=== PATIENT | female | born 1940 | race Caucasian/White ===

== ENCOUNTER 2019-01-02 08:34 | Inpatient (IN) ==
--- NOTE | 2018-12-03 09:28 | PAT Medication Instructions ---
Medication Instructions Date of Service December 03, 2018 Home Medications Advair 1 puff INHALATION UD PRN acetaminophen [Tylenol Extra Strength] 1,000 mg PO BID ascorbic acid (vitamin C) [Vitamin C] 1 g PO DAILY aspirin [Aspir-81] 81 mg PO DAILY atenolol 50 mg PO QPM cholecalciferol (vitamin D3) [Vitamin D3] 5,000 unit PO DAILY linaclotide [Linzess] 145 mcg PO UD PRN losartan 50 mg PO QAM [Centrum Silver Women] 1 tab PO DAILY omega 1-abc-nrs-fish oil [[employer]-3] 1 cap PO DAILY pantoprazole 40 mg PO QAM paroxetine HCl 10 mg PO QPM rosuvastatin 40 mg PO QPM STOP taking 2 weeks before surgery (or as soon as possible if surgery is within 2 weeks) omega 2-xzs-fca-fish oil [[employer]-3] 1 cap PO DAILY DO NOT take the morning of surgery ascorbic acid (vitamin C) [Vitamin C] 1 g PO DAILY cholecalciferol (vitamin D3) [Vitamin D3] 5,000 unit PO DAILY linaclotide [Linzess] 145 mcg PO UD PRN losartan 50 mg PO QAM [Centrum Silver Women] 1 tab PO DAILY Take morning of surgery With a small sip of water, OTHERWISE NOTHING TO EAT OR DRINK AFTER MIDNIGHT: Advair 1 puff INHALATION UD PRN (if needed) acetaminophen [Tylenol Extra Strength] 1,000 mg PO BID (okay to take up to 4 hours prior to surgery if needed) aspirin [Aspir-81] 81 mg PO DAILY pantoprazole 40 mg PO QAM Take evening before surgery Advair 1 puff INHALATION UD PRN (if needed) acetaminophen [Tylenol Extra Strength] 1,000 mg PO BID atenolol 50 mg PO QPM linaclotide [Linzess] 145 mcg PO UD PRN (if needed) paroxetine HCl 10 mg PO QPM rosuvastatin 40 mg PO QPM Other Notes If you have any questions please call us at [phone] or [phone] or [phone] or [phone]
--- NOTE | 2018-12-04 13:18 | Anesthesiology Consultation ---
Date of Service December 04, 2018 Assessment & Plan (1) Encounter for pre-operative examination: - Awaiting review preop testing (labs, EKG, CXR). - Awaiting cardiology office visit scheduled 12/05 ([facility] cardiology). - S/P right CEA (2015): most recent carotid duplex 04/2016. Order pending in [facility] for patient to have updated (patient made aware to obtain prior to surgery). Chart Review Chart Review: Patient seen in Pre Admission Testing Teaching & Discussion Pre-Anesthesia Teaching/Discussion Notes: Instructed NPO after midnight before surgery,except medications with 15 cc of water. Medication instructions provided according to the PAT guidelines. History Surgery Operation Date: 01/02/19 07:00 Proposed Procedures p Right Total Knee Arthroplasty - Mickey Troy MD Height/Weight Height: 5 ft 8 in Weight: 89.8 kg Allergies Allergy/AdvReac Type Severity Reaction Status Date / Time adhesive Allergy Unknown bandaids- Verified 12/04/18 13:15 rash latex Allergy Unknown Rash Verified 11/28/18 09:48 Penicillins Allergy Unknown Rash Verified 12/04/18 13:15 lisinopril AdvReac Unknown Cough Verified 11/28/18 09:48 Medications Home Medications Medication Instructions Recorded Confirmed Last Taken Advair 1 puff INHALATION UD PRN 11/28/18 11/28/18 Unknown acetaminophen [Tylenol Extra 1,000 mg PO BID 11/28/18 11/28/18 Unknown Strength] ascorbic acid (vitamin C) [Vitamin 1 g PO DAILY 11/28/18 11/28/18 Unknown C] aspirin [Aspir-81] 81 mg PO DAILY 11/28/18 11/28/18 Unknown atenolol 50 mg PO QPM 11/28/18 11/28/18 Unknown cholecalciferol (vitamin D3) 5,000 unit PO DAILY 11/28/18 11/28/18 Unknown [Vitamin D3] linaclotide [Linzess] 145 mcg PO UD PRN 11/28/18 11/28/18 Unknown losartan 50 mg PO QAM 11/28/18 11/28/18 Unknown qjgffsna-msv-qbid-FA-lutein 1 tab PO DAILY 11/28/18 11/28/18 Unknown [Centrum Silver Women] omega 8-sso-fpl-fish oil [Export-3] 1 cap PO DAILY 11/28/18 11/28/18 Unknown pantoprazole 40 mg PO QAM 11/28/18 11/28/18 Unknown paroxetine HCl 10 mg PO QPM 11/28/18 11/28/18 Unknown rosuvastatin 40 mg PO QPM 11/28/18 11/28/18 Unknown Past Medical History Medical History Acid reflux controlled Asthma stable Carotid artery stenosis s/p right CEA (2015) Hyperlipidemia Hypertension IBS (irritable bowel syndrome) Obesity Osteoarthritis Exercise / Class Metabolic Activity III < 4 Walking/Shop/Light housework (uses cane PRN) Past Family History Family History Mother Family history of diabetes mellitus (DM) Past Surgical History Surgical History History of CEA (carotid endarterectomy) right History of cholecystectomy History of colonoscopy History of hysterectomy History of lumbar surgery + rods History of total left knee replacement Past Anesthesia History No Hx of Anesthesia Complications and No Family Hx of Anesthesia Complications History of PONV No Hx of PONV and No Hx of Motion Sickness Social History Smoking Status: Former smoker Do You Dip or Chew Tobacco: No Smoking End Date: QUIT 47 YRS AGO Hx Alcohol Use: No Hx Substance Use: No substance use type: does not use Review of Systems Seasonal allergies with sinus congestion/cough improving. Patient denies chest pain, shortness of breath, reflux, wheezing, palpitations. Physical Exam Vital Signs VITALS BP 107/59 P 76 TEMP 98.4 SP02 92%RA RESP 16 PHYSICAL Mildly decreased cervical extension Full TMJ range of motion. TMD 3.5 finger breaths Mallampati Score 2 Dentition: full dentures upper/lower; edentulous Lungs: clear throughout to auscultation Cardiac: regular rate and rhythm, I/ systolic murmur Spine: normal Carotid arteries: faint bruits Extremities: no edema Testing Laboratory Results 11/20/18 WBC 6.0 H/H 13.2/39.5 PLATELETS 236 SODIUM 140 POTASSIUM 5.0 CHLORIDE 104 CO2 29 BUN 28 CREATININE 1.0 GLUCOSE 98 Stress Test Date: 10/14/15 Type: DSE DSE/stress EKG without evidence of inducible ischemia. No chest pain. 95% MPHR. LVEF 56%. Moderately increased cLV wall thickness. Grade I DD. Mild FL. Other Testing Carotid artery duplex: 04/07/16: LINDSEY possible 50-69% stenosis distal to the prior right CEA region. Sup-optimal imaging in this area. No evidence of significant restenosis in the CEA area. LICA 50-69% stenosis (measurement is taken after a bend in the artery, however, and may be an overestimate. B/L vertebral artery antegrade flow.
--- NOTE | 2018-12-04 14:19 | XRay Report ---
XR chest Pre-admission PA/Lat CLINICAL HISTORY: Preoperative chest COMPARISON STUDY: November 2010 FINDINGS: The heart is normal in size. There is suspected underlying emphysema. There is no failure. There is no lobar consolidation. There are old bilateral rib fractures. On the lateral view there is a triangular opacity within the retroxiphoid region. Although nonspecific, this likely represents an area of scarring/atelectasis.[ IMPRESSION: 1. 11 mm triangular opacity within the retroxiphoid region as visualized on the lateral view. Althoug h nonspecific, this likely represents an area of atelectasis/scarring. 2. No evidence of lobar consolidation. No evidence of failure. Electronically signed by: Dick Cadet M.D. 12/04/2018 2:17 PM
[2018-12-04 16:12] LABS: Appearance Urine Clear (Clear); Bilirubin Urine Negative (Negative); Blood Urine Negative (Negative); Color Urine Yellow; Glucose Urine UA Negative (Negative); Ketones Urine Negative (Negative); Leukocyte Esterase Urine Negative (Negative); Nitrite Urine Negative (Negative); Protein Urine Negative (Negative); Specific Gravity Urine 1.025 (1.000-1.030); Urobilinogen Urine Negative (Negative)
[2018-12-04 16:20] LABS: Partial Thromboplastin Ratio 0.9; Partial Thromboplastin Time 25.6 Seconds (21.0-31.0); Prothrombin Time 10.3 Seconds (9.0-12.0)
[2018-12-04 16:30] LABS: Cast Urine Automated 0 /lpf (0-5); RBC Urine Automated 0-4 /hpf (0-4)
[2018-12-04 16:31] LABS: Bacteria Urine Automated 1+ (Negative)
[2018-12-05 05:53] LABS: Estimated Average Glucose 131 mg/dl; Hemoglobin A1C 6.2 % (4.5-5.6)
--- NOTE | 2019-01-01 19:23 | History and Physical Report ---
DATE OF ADMISSION: 01/02/2019 CHIEF COMPLAINT: Chronic right knee pain. HISTORY OF PRESENT ILLNESS: This is a 78-year-old female patient of Dr. Troy'gonzalez complaining of chronic right knee pain, longstanding, now progressively getting worse. The patient has failed conservative treatment including intra-articular injections, anti-inflammatories, home exercise program, the use of a cane and the use of a sleeve. The patient has increased pain with weightbearing activities and her pain does interfere with her activities of daily living. The patient has been diagnosed with end-stage osteoarthritis per clinical and radiographic exams. The patient wished to proceed with a right total knee arthroplasty. PAST MEDICAL HISTORY: Hypertension, hypercholesterolemia, carotid artery stenosis of less than 50% - no symptoms, rheumatoid arthritis, spine problems, benign neoplasia of the colon. SOCIAL HISTORY: Former smoker, nondrinker. PAST SURGICAL HISTORY: Hysterectomy, cholecystectomy, low back surgery, left total knee arthroplasty and carotid artery on the right. FAMILY HISTORY: Noncontributory. REVIEW OF SYSTEMS: Chronic right knee pain, otherwise denies any shortness of breath, chest pain, nausea, vomiting or any other joint complaints. MEDICATIONS: 1. Crestor 40 mg daily. 2. Zyrtec 10 mg daily. 3. ProAir HFA 90 mcg actuation inhaler 2 puffs every 4-6 hours as needed. 4. Paxil 10 mg daily. 5. Pantoprazole 40 mg daily. 6. MiraLax 17 grams with a choice of mixture as needed. 7. Losartan 50 mg daily. 8. Linzess 145 mcg daily. 9. Flonase 50 mcg actuation 1-2 sprays daily as needed. 10. Fish oil 1000 mg daily. 11. Atenolol 50 mg daily. 12. Aspirin 81 mg daily. 13. Advair HFA 230/21 mcg actuation inhaler 2 puffs twice daily. ALLERGIES: LATEX, LISINOPRIL WHICH CAUSES A COUGH, PENICILLIN CAUSES A RASH. PHYSICAL EXAMINATION: GENERAL: A well-developed, well-nourished 78-year-old female in no acute distress. She is alert and oriented x3 and pleasant. HEENT: Normocephalic, atraumatic. Extraocular motions are intact. Pupils are equal and reactive to light. HEART: Regular rate and rhythm, no murmurs. LUNGS: Clear. ABDOMEN: Soft, nontender, bowel sounds present. EXTREMITIES: Right knee limited range of motion of negative 5 to 120 degrees. She has a varus deformity with medial joint line tenderness. She has crepitation with passive range of motion. She has 5/5 strength with pain. Neurologically and neurovascularly, she is intact in her right lower extremity. DIAGNOSES: Right knee end-stage osteoarthritis, hypertension, hypercholesterolemia, carotid stenosis, asthma, rheumatoid arthritis, spine problems, benign neoplasm in the colon. PLAN: The patient was advised of her diagnosis. Indications, risks, benefits, postop course have all been reviewed. The patient wished to proceed with a right total knee arthroplasty. Necessary consent forms, preoperative testing and clearances will be obtained.
[~2019-01-02 08:34] MED LIST: ACETAMINOPHEN 500 MG TAB PO SCH; BUPIVACAINE 0.5 % 5 MG/1 ML PF 10ML VIAL ONE; BUPIVACAINE/EPINEPHRINE 0.25% 1:200,000 30 ML VIAL ONE; CeleBREX 200 MG CAP PO SCH; DEXAMETHASONE SOD INJ 4 MG/ML VIAL ONE; FAMOTIDINE 20 MG TAB PO SCH; GABAPENTIN 300 MG CAP PO SCH; LIDOCAINE HCL 2% 2 ML VIAL/AMP(20MG/ML) INFIL ONE; LR 500ML BOLUS, THEN 15ML/HR IV SCH; METOCLOPRAMIDE HCL 10 MG TABLET PO SCH; MIDAZOLAM HCL 1 MG/ML 2ML VIAL ONE; ONDANSETRON INJ 2 MG/ML 2 ML VIAL ONE; PROPOFOL IV EMULSION 10 MG/ML 20 ML VIAL IV ONE; ROPIVACAINE 0.5% HCL/PF 150 MG, BUPIVACAINE 0.5% MPF 30 ML, EPINEPHrine 30MG/30ML (OR U... INSTIL SCH; TRANEXAMIC ACID 1,000 MG **IV Intra-op IV SCH; TRANEXAMIC ACID 1,000 MG **IV Pre-op IV SCH; VANCOMYCIN HCL 1,250 MG in SODIUM CHLORIDE 0.9% 250 ML IV SCH; dexAMETHasone 4 MG TAB PO SCH; fentaNYL citrate 100 MCG/2 ML VIAL ONE
[2019-01-02] MEDS ORDERED: ORTHO JOINT ANESTHETIC ONE (09:09)
[2019-01-02] MEDS ORDERED: BACITRACIN INJ 50,000 UNIT VIAL ONE (09:09)
--- NOTE | 2019-01-02 09:34 | History & Physical Bridge Note ---
Date of Service January 02, 2019 History & Physical Bridge Note I have examined the patient, reviewed the History & Physical and in the interval since the performance of the History & Physical I have noted the following changes of clinical significance: no changes noted
[2019-01-02] MEDS ORDERED: fentaNYL citrate 100 MCG/2 ML VIAL IV PRN (10:33)
[2019-01-02] MEDS ORDERED: ePHEDrine sulfate 50 MG/ML AMP IV PRN (10:33)
[2019-01-02] MEDS ORDERED: ONDANSETRON INJ 2 MG/ML 2 ML VIAL IV PRN ×2 (10:33→13:24)
[2019-01-02] MEDS ORDERED: ATROPINE SULFATE 0.1 MG/ML 10ML SYR IV PRN (10:33)
[2019-01-02] MEDS ORDERED: PROPOFOL IV EMULSION 10 MG/ML 20 ML VIAL IV ONE (11:32)
--- NOTE | 2019-01-02 11:35 | Operative Report ---
Post Operative Report Pre & Post Diagnosis Operation Date: 01/02/19 11:20 Pre-Op Diagnosis: RIGHT KNEE OSTEOARTHRITIS Post-Op Diagnosis: RIGHT KNEE OSTEOARTHRITIS I identified the patient and participated in the time-out.: Yes Procedure Operation Date: 01/02/19 11:20 Actual Procedures p Right Total Knee Arthroplasty(Right) - Mickey Troy MD Surgeon Mickey Troy MD Commutator Inspector Gentry GREENE Estimated Blood Loss 2 Findings Consistent with Post-Op Diagnosis Specimens Bone cuts Drains 2 Hemovac Anesthesia Type General Regional Complications none Disposition Accompanied Patient To Recovery: No Disposition: Recovery Room Indications 70-year-old female with aggressive osteoarthritis in her right knee failed conservative management. History successful Carlson & Nephew knee replacement left knee. Radiographs demonstrate [id number] medial compartment varus knee patellofemoral medial compartment OA Description of Procedure The patient was taken to the operating room and anesthetized under spinal MAC regional. Patient was placed supine on the the operating table. A pneumatic tourniquet was placed about the right upper thigh. The knee exam demonstrated 0 through 125 degrees range of motion no instability mild effusion varus knee. The involved leg was elevated exsanguinated with Esmarch bandage and the pneumatic tourniquet was raised to 325 millimeters mercury. A longitudinal incision was made across the anterior knee. Skin flaps were elevated. An incision was made into the medial retinaculum and extended up into the mid third of the quadriceps tendon and extended down to the tibial tubercle. Intra- articular findings demonstrated medial compartment patellofemoral osteoarthritis grade 4 medial compartment and grade 3 patellofemoral joint with complex radial medial meniscus tear. The knee was exposed by excising cruciate ligaments and menisci. The infrapatellar fat pad was resected. The fat pad over the anterior femur at the upper aspect of the articular surface was resected for placement of the component in that area. A subperiosteal peel lateral release was performed around the patella The Carlson & Nephew journey 2.0 posterior stabilized total knee arthroplasty system was utilized for the procedure. The drill hole was made into the femoral canal and the guide rené was placed in the distal femoral cutting guide was adjusted to resect a standard distal femoral cut at 5 degrees valgus. The distal femoral cut was made. The size 5, 5 in 1 cutting block was placed. The anterior posterior and chamfer cuts were made. The knee was extended and a free hand cut technique was performed to the patella. The patella with was measured and the width was reproduced using a 35 symmetrical patella component. 3 drill holes are made for the patella component pegs. The tibia was then subluxed. The custom tibial cutting block was pinned in position and the proximal tibial cut was made with the oscillating saw. The size 5 tibial trial was externally rotated in line with the tibial tubercle and pinned in position. The punch for the stem was used. The femoral trial was inserted and centered the notch cutting devices were used and the collet was placed. Tibial trials were used for the insert. The size 12 trial gave balanced ligaments through full range of motion. Patella tracking was assessed with range of motion. The patella tracked centrally. The trials were removed. The Orthomix anesthetic cocktail was injected per protocol. The cut bone surfaces and soft tissue were copiously irrigated with antibiotic solution with bacitracin. The final components were cemented with Simplex cement. The final components were Carlson & Nephew journey 2.05 Oxinium right posterior stabilized femoral component, 5 tibial baseplate, 12 posterior stabilized polyethylene insert and 35 patella symmetrical. While the cement cured the Betadine soak was used per protocol. When the cement cured the knee was copiously irrigated with pulsatile lavage antibiotic solution with bacitracin. 2 drains were brought out laterally connected to Hemovac. The quadriceps tendon and medial retinaculum were closed with interrupted ibptyc-di-[id number] #1 Vicryl sutures. The knee was taken through full range of motion and repair was secure. The subcutaneous tissues were closed with 2-0 Vicryl sutures. The skin was closed with eladio. A sterile dressing was applied. The tourniquet was let down and the patient had good capillary refill to the extremity. The patient tolerated the procedure well. My physician assistant paralegal Gentry GREENE assisted in the procedure including prepping draping leg positioning soft tissue retraction instrument management and assisted in the closure ,dressings application and will participate in postoperative care the patient. I attest to the content of the Intraoperative Record and any orders documented therein. Any exceptions are noted below.
--- NOTE | 2019-01-02 12:48 | XRay Report ---
XR knee RT 1 or 2V routine CLINICAL HISTORY: 78 years-old Female presenting with Surgical Post Op. TECHNIQUE: Frontal and lateral views of the right knee were obtained. COMPARISON: None. FINDINGS: Postsurgical changes of total right knee arthroplasty with patellar resurfacing. Expected soft tissue and intra-articular emphysema. Overlying skin eladio. Surgical drain in place. No malalignment. No periprosthetic fracture. No periprosthetic lucency. Underlying osteopenia may be present. IMPRESSION: Expected postsurgical appearance status post total right knee arthroplasty with patellar resurfacing. Electronically signed by: Johny Núñez M.D. 01/02/2019 12:47 PM
--- NOTE | 2019-01-02 12:49 | Anesthesiology Progress Note ---
Date of Service January 02, 2019 Anesthesia Post Procedure Vital Signs Vital Signs: Temp Pulse Resp BP Pulse Ox 01/02/19 12:45 76 14 127/53 L 93 01/02/19 12:35 36.6 C 71 17 122/64 93 01/02/19 12:25 71 19 136/52 L 94 01/02/19 12:15 71 16 141/56 H 100 01/02/19 12:05 74 17 138/58 L 100 01/02/19 11:55 36.5 C 80 12 138/56 L 98 01/02/19 09:05 36.7 C 69 16 160/65 H 94 Transfer of Care Handoff Completed per policy Notes Mental Status: alert / awake / arousable Patient Amnestic to Procedure: Yes Nausea / Vomiting: adequately controlled Pain: adequately controlled Airway Patency, RR, SpO2: stable & adequate BP & HR: stable & adequate Hydration State: stable & adequate Anesthetic Complications: no major complications apparent
[2019-01-02] MEDS ORDERED: HYDROmorphone INJ 0.5 MG/0.5 ML SYR IV PRN (13:24)
[2019-01-02] MEDS ORDERED: LINACLOTIDE 72 MCG CAPSULE PO PRN (13:24)
[2019-01-02] MEDS ORDERED: ADVAIR INH PRN (13:24)
[2019-01-02] MEDS ORDERED: MAGNESIUM HYDROXIDE SUSP 30 ML UDC PO PRN (13:24)
[2019-01-02] MEDS ORDERED: NALOXONE HCL 0.4 MG/1 ML VIAL/CARP IV PRN (13:24)
[2019-01-02] MEDS ORDERED: VANCOMYCIN CONSULT ACTIVE PRN (13:24)
[2019-01-02] MEDS ORDERED: BISACODYL 10 MG SUPP PR PRN (13:24)
[2019-01-02] MEDS: ACETAMINOPHEN 500 MG TAB PO SCH ×2 (13:57→21:38)
[2019-01-02] MEDS: SODIUM CHLORIDE 0.9% 1000ML 1,000 ML IV SCH (13:58)
--- NOTE | 2019-01-02 15:32 | Hospitalist Consultation ---
Date of Consultation January 02, 2019 Assessment & Plan (1) Hypertension: Blood pressure appears to be stable. Continue home medicine aspirin 81 mg p.o. daily when okay with Ortho, atenolol 50 mg p.o. nightly every afternoon, losartan 50 mg p.o. every morning. Patient blood pressure is less than 120/80 hold blood pressure medicine and recheck blood pressure again. Keep systolic blood pressure below 150 and diastolic below 85. Continue monitoring Present on Admission?: Yes (2) Hyperlipidemia: Lipid panel pending. Continue home dose of rosuvastatin 40 mg p.o. every afternoon and omega-3 fish oil 1 capsule p.o. daily. Present on Admission?: Yes (3) Obesity: Patient advised to try to lose weight especially now when she has replaced knee and will be able to walk more and exercise. Physical and Occupational Therapy per primary team. (4) Carotid artery stenosis: Patient said she had CEA by at [facility] for the right carotid artery stenosis. Patient said that last week she had another sonogram which was surveillance sonogram and showed that she had only 50% stenosis on the left. Follow-up with Dr. Sheriff. Present on Admission?: Yes (5) GERD (gastroesophageal reflux disease): Continue home dose of pantoprazole 40 mg p.o. every morning. Present on Admission?: Yes (6) Irritable bowel syndrome: Continue linaclotide 145 MCG's p.o. as needed. Present on Admission?: Yes (7) Encounter for pre-operative examination: Right knee arthroplasty management per primary team. DVT prophylaxis per primary team. Present on Admission?: Yes History of Present Illness Reason for Consultation: Medical management Attending Physician: Mickey Troy MD History of Present Illness Patient is a 78 years old female with past medical history of hypertension, hyperlipidemia, COPD, hypercholesterolemia and GERD, depression status post right knee arthroplasty for osteoarthritis by Dr. Mickey Troy And he consulted as for the medical management of patient chronic diseases. Patient tolerated surgery very well she is sitting up in the bed. Patient is at 2 L of oxygen even though usually she is not on oxygen at home. She denies fever, chills, chest pain, shortness of breath, abdominal pain, frequency, urgency. Her pain is well controlled. P.o. intake is good. Patient does not have complain of constipation and reports regular bowel movements. Allergies Allergy/AdvReac Type Severity Reaction Status Date / Time adhesive Allergy Unknown bandaids- Verified 01/02/19 09:00 rash latex Allergy Unknown Rash Verified 01/02/19 09:00 Penicillins Allergy Unknown Rash Verified 01/02/19 09:00 lisinopril AdvReac Unknown Cough Verified 01/02/19 09:00 Home Medications Home Medications Medication Instructions Recorded Confirmed Type Advair 1 puff INHALATION UD PRN 11/28/18 01/02/19 History acetaminophen [Tylenol Extra 1,000 mg PO BID 11/28/18 01/02/19 History Strength] ascorbic acid (vitamin C) [Vitamin 1 g PO DAILY 11/28/18 01/02/19 History C] aspirin [Aspir-81] 81 mg PO DAILY 11/28/18 01/02/19 History atenolol 50 mg PO QPM 11/28/18 01/02/19 History cholecalciferol (vitamin D3) 5,000 unit PO DAILY 11/28/18 01/02/19 History [Vitamin D3] linaclotide [Linzess] 145 mcg PO UD PRN 11/28/18 01/02/19 History losartan 50 mg PO QAM 11/28/18 01/02/19 History suwnsgzp-hjk-olmo-FA-lutein 1 tab PO DAILY 11/28/18 01/02/19 History [Centrum Silver Women] omega 0-tao-vbo-fish oil [Grant-3] 1 cap PO DAILY 11/28/18 01/02/19 History pantoprazole 40 mg PO QAM 11/28/18 01/02/19 History paroxetine HCl 10 mg PO QPM 11/28/18 01/02/19 History rosuvastatin 40 mg PO QPM 11/28/18 01/02/19 History Patient History Medical History Acid reflux controlled Asthma stable Carotid artery stenosis s/p right CEA (2015) Hyperlipidemia Hypertension IBS (irritable bowel syndrome) Obesity Osteoarthritis Surgical History History of CEA (carotid endarterectomy) right History of cholecystectomy History of colonoscopy History of hysterectomy History of lumbar surgery + rods History of total left knee replacement Family History Mother Family history of diabetes mellitus (DM) Social History Preferred Language: Guinean Communication Ability: Effective [employer] Machine Feeder Required: No Beliefs That Will Affect Care: None Current Living Situation: Spouse Other Information That Helps Us Care for You: No Feels Safe at Home: Yes Smoking Status: Former smoker Do You Dip or Chew Tobacco: No ; Smoking End Date: QUIT 47 YRS AGO ; Hx Alcohol Use: No Hx Substance Use: No Review of Systems Review of Systems: All systems reviewed & are unremarkable except as noted in HPI & below Physical Exam Constitutional: WD/WN, vitals as above well developed Eyes: PERRL, conjunctivae normal, anicteric sclerae ENMT: external ear and nose normal, oropharynx normal Mouth: + dentures Mallampati Class: II Neck: normal visual inspection Respiratory: normal respiratory effort Auscultation: lungs clear to auscultation bilaterally Cardiovascular: Rate/Rhythm: regular rate and regular rhythm Heart Sounds: normal S1, normal S2 and + murmur Gastrointestinal (Abdomen): normal bowel sounds, soft, nontender, no hepatosplenomegaly Musculoskeletal: no cyanosis or clubbing, extremities motor strength 5/5 Skin: no rashes, warm and dry Neurologic: patellar DTR's 2+ bilat, sensation intact Psychiatric: A+Ox3, euthymic affect Lymphatic: no cervical or axillary lymphadenopathy Results & Data Vital Signs (Past 12 Hours) Vital Signs Temp Pulse Pulse Pulse Resp BP Pulse Ox 01/02/19 14:55 36.7 C 79 17 112/60 94 01/02/19 14:02 36.7 C 84 16 126/56 L 91 01/02/19 13:26 36.8 C 74 16 112/51 L 92 01/02/19 12:55 36.8 C 75 16 127/62 94 01/02/19 12:45 76 14 127/53 L 93 01/02/19 12:35 36.6 C 71 17 122/64 93 01/02/19 12:25 71 19 136/52 L 94 01/02/19 12:15 71 16 141/56 H 100 01/02/19 12:05 74 17 138/58 L 100 01/02/19 11:55 36.5 C 80 12 138/56 L 98 01/02/19 09:05 36.7 C 69 16 160/65 H 94 PG Care Time/CCT Total # of Minutes Spent Total Time Spent with Patient: Total time spent is greater than 50% in coordination of care (as documented) at patient's floor/unit and/or counseling patient:
[2019-01-02] MEDS: ADVAIR~ORDER AWAITING ACTION SCH (16:42)
[2019-01-02] MEDS: DOCUSATE SODIUM 100 MG CAP PO SCH (20:36)
[2019-01-02] MEDS: ROSUVASTATIN CALCIUM 20 MG TAB PO SCH (20:37)
[2019-01-02] MEDS: PARoxetine HCl 10 MG TAB PO SCH (20:38)
[2019-01-02] MEDS: ASPIRIN 81 MG ECTAB PO SCH (20:38)
[2019-01-02] MEDS: SENNA 8.6 MG TAB PO SCH (20:38)
[2019-01-02] MEDS: ATENOLOL 50 MG TABLET PO SCH (21:39)
[2019-01-02] MEDS ORDERED: VANCOMYCIN HCL 1,250 MG in SODIUM CHLORIDE 0.9% 250 ML IV SCH (22:00)
[2019-01-03] MEDS: SODIUM CHLORIDE 0.9% 1000ML 1,000 ML IV SCH (00:08)
[2019-01-03] MEDS: ADVAIR~ORDER AWAITING ACTION SCH ×3 (00:09→15:16)
[2019-01-03] MEDS: ACETAMINOPHEN 500 MG TAB PO SCH ×3 (05:48→21:15)
[2019-01-03 06:13] LABS: Hemoglobin 10.1 g/dL (12.0-16.0); Mean Corpuscular Hemoglobin 30.1 pg (25-34); Mean Corpuscular Hgb Conc 32.6 g/dL (32-36); Mean Corpuscular Volume 92.5 fL (80-100); Mean Platelet Volume 10.2 fL (7.4-10.4); Platelet Count 196 K/uL (130-400); RDW Coefficient of Variation 13.5 % (11.5-14.5); RDW Standard Deviation 45.6 fL (36.4-46.3); Red Blood Count 3.35 M/uL (4.2-5.4); White Blood Count 10.03 K/uL (4.8-10.8)
[2019-01-03 06:48] LABS: BUN Creatinine Ratio 23.9 (10-20); Creatinine Clr Calc Pharmacy 47.4 ml/min; Est GFR (African American) 53.3; Potassium 4.2 mmol/L (3.5-5.1)
[2019-01-03] MEDS: ASCORBIC ACID 500 MG TAB PO SCH (09:01)
[2019-01-03] MEDS: MULTIVITAMIN TAB PO SCH (09:02)
[2019-01-03] MEDS: CHOLECALCIFEROL 1,000 UNITS TAB PO SCH (09:02)
[2019-01-03] MEDS: ASPIRIN 81 MG ECTAB PO SCH ×2 (09:02→20:25)
[2019-01-03] MEDS: LOSARTAN POTASSIUM 50 MG TAB PO SCH (09:02)
[2019-01-03] MEDS: DOCUSATE SODIUM 100 MG CAP PO SCH ×2 (09:02→20:24)
[2019-01-03] MEDS: PANTOprazole 40 MG TAB PO SCH (09:02)
[2019-01-03] MEDS: CEROVITE ADV FORMULA TAB PO SCH (09:02)
--- NOTE | 2019-01-03 09:16 | Orthopedic Progress Note ---
Date of Service January 03, 2019 Assessment & Plan (1) Status post right knee replacement: 78 yo female stable POD #1 s/p right TKA 1. Med management 2. DVT prophylaxis- ASA, SCDs 3. PT/OT 4. D/C planning- home w/ HH Subjective Pt resting in chair, eating breakfast, denies complaints Physical Exam Physical Exam: Toes mobile, N/V/I, dressing and drain in place Results & Data Vital Signs (Past 12 Hours) Vital Signs Temp Pulse Resp BP Pulse Ox 01/03/19 07:05 36.8 C 72 18 138/48 L 95 01/03/19 05:52 92 01/03/19 03:24 36.8 C 73 16 113/47 L 93 01/02/19 23:01 36.8 C 76 16 130/55 L 95 Laboratory Results 01/03/19 01/03/19 Range/Units 05:07 05:07 WBC 10.03 (4.8-10.8) K/uL RBC 3.35 L (4.2-5.4) M/uL Hgb 10.1 L (12.0-16.0) g/dL Hct 31.0 L (37-47) % MCV 92.5 (80-100) fL MCH 30.1 (25-34) pg MCHC 32.6 (32-36) g/dL RDW Std Deviation 45.6 (36.4-46.3) fL RDW Coeff of Jimmy 13.5 (11.5-14.5) % Plt Count 196 (130-400) K/uL MPV 10.2 (7.4-10.4) fL Sodium 142 (136-145) mmol/L Potassium 4.2 (3.5-5.1) mmol/L Chloride 111 H (98-107) mmol/L Carbon Dioxide 23 (21-32) mmol/L Anion Gap 8.0 (3-11) BUN 27 H (7-18) mg/dl Creatinine 1.14 (0.6-1.2) mg/dl Est Cr Clr Drug Dosing 47.4 ml/min Est GFR ( Amer) 53.3 Est GFR (Non-Af Amer) 46.0 BUN/Creatinine Ratio 23.9 H (10-20) Glucose 139 H (70-99) mg/dl Calcium 9.0 (8.5-10.1) mg/dl
--- NOTE | 2019-01-03 10:13 | Hospitalist Progress Note ---
Date of Service January 03, 2019 Assessment & Plan (1) Status post right knee replacement: Ms. Nair is a 78 year old female with PMHx of hypertension, hyperlipidemia, COPD, GERD and depression s/p right knee arthroplasty on Jan 02, [address] Mickey Troy. Pt doing well, hypoxia resolved. Hospitalist team will sign off. Please contact once more if any additional questions or concerns. Hypoxia post/op requiring oxygen supplementation -currently resolved -pt on room air saturating >92 -continue incentive spirometry Hx of right knee arthroplasty -Surgery on Jan 02 -continue aspirin 81mg BID per primary team -PT/OT per primary team HTN -continue home atenolol 50mg, losartan 50mg Hyperlipidemia: -Continue home rosuvastatin 40 mg and omega-3 fish oil 1 capsule p.o. daily. Carotid artery stenosis: -Patient said she had CEA by at [facility] for the right carotid artery stenosis. -Patient said that last week she had another sonogram which was surveillance sonogram and showed that she had only 50% stenosis on the left. -Follow-up with Dr. Sheriff. GERD (gastroesophageal reflux disease): -Continue home dose of pantoprazole 40 mg p.o. every morning. Irritable bowel syndrome: -Continue linaclotide 145 MCG's p.o. as needed. Supervising Physician Co-Signing Physician Notes I personally examined the patient and verified all stauffer points of history and ex am, discussed case, and agree with decision making with Dr Britt. feeling good overall no significant pain. breathing well vitals noted nad breathing unlabored no pallor or icterus no focal neuro d eficits HTN - reasonable control inpt. continue current care. asthma - no sob. doing well. DVT proph - as per ortho otherwise as above medically stable will sign off, we will be available as needed, thanks! Subjective Pt seen this AM, seated on chair near bed eating breakfast. States she is doing well, no longer requiring oxygen. States incentive spirometer has helped tremendously. Has not had a bowel movement yet, but states she received some laxatives last night. Denies any headache, changes to vision, cough, sore throat, dizziness, we akness, chest pain, SOB, palpitations, abdominal pain, diarrhea, swelling in hands or feet or numbness or tingling anywhere. Review of Systems Review of Systems: All systems reviewed & are unremarkable except as noted in HPI & below Physical Exam Physical Exam: General: Alert, oriented. No acute distress Skin: No noted rashes or bruises Psych: Appropriate mood and affect Neuro: No gross deficits HEENT: NC/AT, PERRLA, EOMI, oropharynx moist. Chest: Nontender to palpation. CV: RRR, Normal s1, s2. No murmurs appreciated Resp: Breath sounds clear bilaterally, no increased effort of breathing. No crackles/rhonchi/rales. Abdomen: Soft, nontender, nondistended. No guarding. No organomegaly appreciated. Extremities: Right leg extended and elevated, knee bandaged with no evidence of bleeding. Results & Data Vital Signs (Past 12 Hours) Vital Signs Temp Pulse Resp BP Pulse Ox 01/03/19 07:05 36.8 C 72 18 138/48 L 95 01/03/19 05:52 92 01/03/19 03:24 36.8 C 73 16 113/47 L 93 01/02/19 23:01 36.8 C 76 16 130/55 L 95 Laboratory Results Laboratory Results - last 24 hr 01/03/19 01/03/19 05:07 05:07 WBC 10.03 RBC 3.35 L Hgb 10.1 L Hct 31.0 L MCV 92.5 MCH 30.1 MCHC 32.6 RDW Std Deviation 45.6 RDW Coeff of Jimmy 13.5 Plt Count 196 MPV 10.2 Sodium 142 Potassium 4.2 Chloride 111 H Carbon Dioxide 23 Anion Gap 8.0 BUN 27 H Creatinine 1.14 Est Cr Clr Drug Dosing 47.4 Est GFR ( Amer) 53.3 Est GFR (Non-Af Amer) 46.0 BUN/Creatinine Ratio 23.9 H Glucose 139 H Calcium 9.0 Medications Administered Home Medications Advair 1 puff INHALATION UD PRN 11/28/18 [History Confirmed 01/02/19] acetaminophen [Tylenol Extra Strength] 1,000 mg PO BID 11/28/18 [History Confirmed 01/02/19] ascorbic acid (vitamin C) [Vitamin C] 1 g PO DAILY 11/28/18 [History Confirmed 01/02/19] aspirin [Aspir-81] 81 mg PO DAILY 11/28/18 [History Confirmed 01/02/19] atenolol 50 mg PO QPM 11/28/18 [History Confirmed 01/02/19] cholecalciferol (vitamin D3) [Vitamin D3] 5,000 unit PO DAILY 11/28/18 [History Confirmed 01/02/19] linaclotide [Linzess] 145 mcg PO UD PRN 11/28/18 [History Confirmed 01/02/19] losartan 50 mg PO QAM 11/28/18 [History Confirmed 01/02/19] tllcugby-lpi-zfss-FA-lutein [Centrum Silver Women] 1 tab PO DAILY 11/28/18 [History Confirmed 01/02/19] omega 2-jpl-sqz-fish oil [Branford-3] 1 cap PO DAILY 11/28/18 [History Confirmed 01/02/19] pantoprazole 40 mg PO QAM 11/28/18 [History Confirmed 01/02/19] paroxetine HCl 10 mg PO QPM 11/28/18 [History Confirmed 01/02/19] rosuvastatin 40 mg PO QPM 11/28/18 [History Confirmed 01/02/19] Active Medications Acetaminophen (Tylenol) 1,000 mg PO Q8 [facility] Stop: 02/01/19 13:59 Last Admin: 01/03/19 05:48 Dose: 1,000 mg Documented by: Ascorbic Acid (Vitamin C) 1,000 mg PO DAILY [facility] Stop: 02/02/19 08:59 Last Admin: 01/03/19 09:01 Dose: 1,000 mg Documented by: Aspirin (Ecotrin Ectab) 81 mg PO BID [facility] Stop: 02/01/19 20:59 Last Admin: 01/03/19 09:02 Dose: 81 mg Documented by: Atenolol (Tenormin) 50 mg PO QPM [facility] Stop: 02/01/19 20:59 Last Admin: 01/02/19 21:39 Dose: Not Given Documented by: Bisacodyl (Dulcolax) 10 mg MA DAILY PRN PRN Reason: Constipation Stop: 02/01/19 13:23 Diphenhydramine HCl (Benadryl Capsule) 25 mg PO Q8H PRN PRN Reason: Itching Stop: 02/01/19 13:23 Docusate Sodium (Colace) 100 mg PO BID [facility] Stop: 02/01/19 20:59 Last Admin: 01/03/19 09:02 Dose: 100 mg Documented by: Hydromorphone HCl (Dilaudid) 0.5 mg IV Q4H PRN PRN Reason: Pain Stop: 01/16/19 13:23 Linaclotide (Linzess) 144 mcg PO DAILY PRN PRN Reason: IBS Stop: 02/01/19 13:23 Losartan Potassium (Cozaar) 50 mg PO QAM [facility] Stop: 02/02/19 08:59 Last Admin: 01/03/19 09:02 Dose: 50 mg Documented by: Magnesium Hydroxide (Milk Of Magnesia) 30 ml PO Q6H PRN PRN Reason: Constipation Stop: 02/01/19 13:23 Miscellaneous (Order Awaiting Action) 1 ea N/A QS [facility] Stop: 02/01/19 15:59 Last Admin: 01/03/19 07:49 Dose: Not Given Documented by: Multivitamins (Multivitamin Tab) 1 tab PO QAM [facility] Stop: 02/02/19 08:59 Last Admin: 01/03/19 09:02 Dose: 1 tab Documented by: Multivitamins/Minerals (Multivitamin W/ Minerals Tab) 1 tab PO DAILY [facility] Stop: 02/02/19 08:59 Last Admin: 01/03/19 09:02 Dose: 1 tab Documented by: Naloxone HCl (Narcan) 0.1 mg IV Q5M PRN PRN Reason: Oversedation/Resp Depression Stop: 02/01/19 13:23 Ondansetron HCl (Zofran) 4 mg IV Q6H PRN PRN Reason: Nausea And Vomiting Stop: 02/01/19 13:23 Oxycodone HCl (Roxicodone Immediate Rel) 5 - 10 mg PO Q4H PRN PRN Reason: Pain Stop: 01/16/19 13:23 Pantoprazole Sodium (Protonix) 40 mg PO QAM [facility] Stop: 02/02/19 08:59 Last Admin: 01/03/19 09:02 Dose: 40 mg Documented by: Paroxetine HCl (Paroxetine Hcl) 10 mg PO QPM [facility] Stop: 02/01/19 20:59 Last Admin: 01/02/19 20:38 Dose: 10 mg Documented by: Rosuvastatin Calcium (Crestor) 40 mg PO QPM [facility] Stop: 02/01/19 20:59 Last Admin: 01/02/19 20:37 Dose: 40 mg Documented by: Sennosides (Senokot) 17.2 mg PO HS [facility] Stop: 02/01/19 20:59 Last Admin: 01/02/19 20:38 Dose: 17.2 mg Documented by: Vitamin D (Vitamin D3) 5,000 units PO DAILY [facility] Stop: 02/02/19 08:59 Last Admin: 01/03/19 09:02 Dose: 5,000 units Documented by: Resident Activity Tracking Resident Involvement: Resident Care Provided Care Provided: Adult Hospital Medicine
[2019-01-03] MEDS: OXYCODONE HCL IR 5 MG TAB (IMMEDIATE RELEASE) PO PRN ×2 (15:26→20:19)
--- NOTE | 2019-01-03 16:47 | Billing Data ---
Coding Level of Care Code 84635 Subseq Hosp Care Lvl 2
[2019-01-03] MEDS: ROSUVASTATIN CALCIUM 20 MG TAB PO SCH (20:25)
[2019-01-03] MEDS: PARoxetine HCl 10 MG TAB PO SCH (20:25)
[2019-01-03] MEDS: SENNA 8.6 MG TAB PO SCH (20:25)
[2019-01-03] MEDS: ATENOLOL 50 MG TABLET PO SCH (21:15)
[2019-01-04] MEDS: ADVAIR~ORDER AWAITING ACTION SCH ×2 (00:31→07:11)
[2019-01-04] MEDS: OXYCODONE HCL IR 5 MG TAB (IMMEDIATE RELEASE) PO PRN ×2 (04:27→09:19)
[2019-01-04 05:43] LABS: Hematocrit (blood only) 31.3 % (37-47); Mean Corpuscular Hgb Conc 31.9 g/dL (32-36); Mean Platelet Volume 9.7 fL (7.4-10.4); Platelet Count 203 K/uL (130-400); RDW Coefficient of Variation 13.7 % (11.5-14.5); Red Blood Count 3.33 M/uL (4.2-5.4); White Blood Count 9.14 K/uL (4.8-10.8)
[2019-01-04 06:13] LABS: BUN Creatinine Ratio 22.6 (10-20); Est GFR (African American) 62.5; Est GFR (Non-African American) 53.9; Potassium 4.1 mmol/L (3.5-5.1)
[2019-01-04] MEDS: ACETAMINOPHEN 500 MG TAB PO SCH (06:15)
[2019-01-04] MEDS: ASCORBIC ACID 500 MG TAB PO SCH (07:29)
[2019-01-04] MEDS: PANTOprazole 40 MG TAB PO SCH (07:30)
[2019-01-04] MEDS: CEROVITE ADV FORMULA TAB PO SCH (07:30)
[2019-01-04] MEDS: MULTIVITAMIN TAB PO SCH (07:30)
[2019-01-04] MEDS: DOCUSATE SODIUM 100 MG CAP PO SCH (07:30)
[2019-01-04] MEDS: CHOLECALCIFEROL 1,000 UNITS TAB PO SCH (07:30)
[2019-01-04] MEDS: LOSARTAN POTASSIUM 50 MG TAB PO SCH (07:30)
[2019-01-04] MEDS: ASPIRIN 81 MG ECTAB PO SCH (07:30)
--- NOTE | 2019-01-04 08:36 | Orthopedic Progress Note ---
Date of Service January 04, 2019 Assessment & Plan (1) Status post right knee replacement: 78 yo female stable POD #2 s/p right TKA 1. Med management 2. DVT prophylaxis- ASA, SCDs 3. PT/OT 4. D/C planning- home w/ HH Subjective Pt resting in bed, pain controlled, denies complaints Physical Exam Physical Exam: Toes mobile, N/V/I, dressing in place Results & Data Vital Signs (Past 12 Hours) Vital Signs Temp Pulse Resp BP Pulse Ox 01/04/19 06:32 36.5 C 53 L 16 159/67 H 92 01/03/19 23:00 36.8 C 60 16 174/57 H 91 01/03/19 20:35 61 163/68 H 94 Laboratory Results 01/04/19 01/04/19 Range/Units 05:28 05:28 WBC 9.14 (4.8-10.8) K/uL RBC 3.33 L (4.2-5.4) M/uL Hgb 10.0 L (12.0-16.0) g/dL Hct 31.3 L (37-47) % MCV 94.0 (80-100) fL MCH 30.0 (25-34) pg MCHC 31.9 L (32-36) g/dL RDW Std Deviation 47.0 H (36.4-46.3) fL RDW Coeff of Jimmy 13.7 (11.5-14.5) % Plt Count 203 (130-400) K/uL MPV 9.7 (7.4-10.4) fL Sodium 141 (136-145) mmol/L Potassium 4.1 (3.5-5.1) mmol/L Chloride 109 H (98-107) mmol/L Carbon Dioxide 27 (21-32) mmol/L Anion Gap 5.0 (3-11) BUN 23 H (7-18) mg/dl Creatinine 1.00 (0.6-1.2) mg/dl Est Cr Clr Drug Dosing 54.0 ml/min Est GFR ( Amer) 62.5 Est GFR (Non-Af Amer) 53.9 BUN/Creatinine Ratio 22.6 H (10-20) Glucose 115 H (70-99) mg/dl Calcium 9.0 (8.5-10.1) mg/dl
== END 2019-01-04 11:04 | disposition home health service (06) | DRG 470 ==
LOC: ASU 08:34 → 3E 11:56
DX: K58.9 Irritable bowel syndrome, unspecified; E66.9 Obesity, unspecified; Z68.29 Body mass index [BMI] 29.0-29.9, adult; E78.00 Pure hypercholesterolemia, unspecified; M06.9 Rheumatoid arthritis, unspecified; J95.89 Other postprocedural complications and disorders of respiratory system, not elsewhere classified; R09.02 Hypoxemia; M17.11 Unilateral primary osteoarthritis, right knee; I77.1 Stricture of artery; K21.9 Gastro-esophageal reflux disease without esophagitis; F32.9 Major depressive disorder, single episode, unspecified; Z79.899 Other long term (current) drug therapy; J45.909 Unspecified asthma, uncomplicated; E78.5 Hyperlipidemia, unspecified; I10 Essential (primary) hypertension